=== PATIENT | female | born 1985 | race Caucasian/White ===

== ENCOUNTER 2022-03-16 13:17 | Emergency (ER) | payer BC, SELFPAY ==
[2022-03-16 13:18] VITALS: BP 114/72; PULSE 107; RESP 16; TEMP 37.3; O2SAT 99; BMI 32.1
--- NOTE | 2022-03-16 14:18 | EDS_ITS ---
HPI HPI - GI History of Present Illness Chief Complaint: Abd Pain Informant: patient Abdominal Pain/Flank Pain Onset: Yesterday Context: Sudden Onset Timing: Continuous Quality: Stabbing Location: RLQ and LLQ Worsened by: Movement and - (Ambulation) Relieved by: Remaining Still Nausea/Vomiting/Emesis GI Symptom: Negative for Nausea or Vomiting Diarrhea/Melena/Hematochezia GI Symptom: Negative for Diarrhea, Melena or Hematochezia Associated Symptoms Associated Symptoms: Negative for Dysuria, Frequency or Hematuria LMP: Few weeks ago Narrative Narrative: Patient presents with abdominal pain that began yesterday. Patient states it has been constant since yesterday evening. Patient states it came on rather suddenly. Patient states it is stabbing. Patient states her pain started out as diffuse but is now mainly in the lower abdomen. Patient states it is worse with ambulation. Patient states it is better with rest. Patient denies any nausea or vomiting. Patient denies any diarrhea, melena, or hematochezia. Patient denies any urinary complaints. Patient states her last menstrual period was a few weeks ago. Patient states she went to the urgent care today and had a urinalysis done there which was negative. Patient states that they also did a test which was negative. [facility] Medical History (Updated 03/16/22 @ 19:[address] Néstor Zarate, DO) Asthma Cholecystectomy planned GERD (gastroesophageal reflux disease) Home Medications vits,calcium no.78-iron fumarate-folic acid 29 mg-1 mg tablet (Prenat abs FA) 1 tab PO DAILY 07/24/13 [History Last Taken Unknown] ibuprofen 600 mg tablet 600 mg PO Q6H PRN PRN Pain ##30 07/26/13 [Rx Last Taken Unknown] oxycodone-acetaminophen 5 mg-325 mg tablet 2 tab PO Q4H PRN PRN Moderate-Severe pain ##30 07/26/13 [Rx Last Taken Unknown] ciprofloxacin HCl 500 mg tablet 500 mg PO BID #20 TABLETS 03/16/22 [Rx Last Taken Unknown] metronidazole 500 mg tablet 500 mg PO Q6H #40 tabs 03/16/22 [Rx Last Taken Unknown] Allergy/AdvReac Type Severity Reaction Status Date / Time sulfamethoxazole Allergy Unknown Verified 03/16/22 13:18 [From Bactrim] trimethoprim [From Bactrim] Allergy Unknown Verified 03/16/22 13:18 Surgical History (Updated 03/16/22 @ 14:[address] Néstor Zarate DO) H/O section Hx of cholecystectomy Hx of hysterectomy Hx of tubal ligation Social History Smoking Status: Never smoker ROS ROS ED Constitutional Constitutional ED: Reports fever(s); Denies chills Eyes Eyes: Denies blurry vision or change in vision ENT ENT ED: Denies rhinorrhea or sore throat Cardiovascular Cardiovascular: Denies chest pain or palpitations Respiratory/Chest Respiratory/Chest: Reports dyspnea; Denies cough Gastrointestinal Gastrointestinal: Reports abdominal pain; Denies diarrhea, nausea or vomiting Genitourinary Genitourinary ED: Denies dysuria or hematuria Musculoskeletal Musculoskeletal: Reports back pain; Denies neck pain Integumentary Denies abscess or rash Neurologic Neurologic: Denies headache(s) or weakness Allergic/Immunologic Allergic/Immunologic ED: Denies mouth swelling or urticaria EXAM Physical Exam Const Vital Signs: 03/16/22 13:18 03/16/22 15:22 03/16/22 17:47 Temperature 99.2 F H Temperature Source Temporal Pulse Rate 107 H 71 Respiratory Rate 16 16 18 Blood Pressure 114/72 106/56 L Blood Pressure Mean 86 72 Pulse Ox 99 98 Oxygen Delivery Method Room Air Room Air Positive well nourished and well developed General Appearance ED: well developed HEENT Reports moist mucous membranes Neck supple and no JVD Resp normal respiratory effort and clear to auscultation bilaterally Cardio regular rate, regular rhythm and no murmurs GI normal to inspection, nondistended, normoactive bowel sounds Palpation: soft and tender LLQ and suprapubic; Negative for guarding or rebound tenderness present Extremity normal to inspection General Extremety ED: Negative for edema or tenderness General Extremity: Negative for edema Neuro oriented x3, CN's II-XII intact bilaterally and no sensory deficits noted Sensorium / Orientation: alert Motor Exam: strength 5/5 throughout Psych mental status grossly normal Skin no rashes or lesions noted MDM MDM MDM Narrative Medical decision making narrative: Patient was given IV fluids, morphine, and Zofran. CBC shows a mild leukocytosis of 14.1. Comprehensive metabolic profile was within normal limits. Serum hCG was negative. Urinalysis shows a leukocyte esterases of 25 with 5-[address] scan of the abdomen pelvis was obtained. There is sigmo id diverticulitis. There is no abscess or perforation. This was interpreted by the radiologist and reviewed by myself. Patient was advised of her findings. Patient was given a dose of Cipro and Flagyl here. Patient was given prescriptions for Cipro and Flagyl. Patient was instructed to avoid alcohol. Patient was instructed to follow-up with her primary care physician in 5 to 7 days. Patient understood and was agreeable with the plan. All questions were answered. Lab Data Attestation: I reviewed the patient's lab results. Labs: Laboratory Results - last 24 hr 03/16/22 03/16/22 03/16/22 13:37 13:37 13:37 WBC 14.1 H RBC 4.39 Hgb 14.0 Hct 40.0 MCV 91.1 MCH 31.9 MCHC 35.0 RDW Std Deviation 39.6 RDW Coeff of Anat 11.8 Plt Count 216 MPV 10.6 Immature Gran % (Auto) 0.400 Neut % (Auto) 81.0 H Lymph % (Auto) 12.2 L [place] % (Auto) 6.1 Eos % (Auto) 0.1 Baso % (Auto) 0.2 Absolute Neuts (auto) 11.4 H Absolute Lymphs (auto) 1.73 Nucleated RBC % 0 Sodium 137 Potassium 3.6 Chloride 102 Carbon Dioxide 27.0 Anion Gap 8 BUN 9 Creatinine 0.72 Estim Creat Clear Calc 120.92 Est GFR (MDRD) Af Amer 116 Est GFR (MDRD) Non-Af 96 BUN/Creatinine Ratio 12.4 Glucose 87 Calcium 8.4 L Total Bilirubin 0.80 AST 55 H ALT 42 Alkaline Phosphatase 101 Total Protein 7.2 Albumin 3.7 Globulin 3.5 Albumin/Globulin Ratio 1.1 Serum , Qual NEGATIVE Urine Color Urine Clarity Urine pH Ur Specific Silva Urine Protein Urine Glucose (UA) Urine Ketones Urine Occult Blood Urine Nitrite Urine Bilirubin Urine Urobilinogen Ur Leukocyte Esterase Urine RBC Urine WBC Ur Squamous Epith Cells Urine Bacteria Urine Mucus 03/16/22 15:00 WBC RBC Hgb Hct MCV MCH MCHC RDW Std Deviation RDW Coeff of Anat Plt Count MPV Immature Gran % (Auto) Neut % (Auto) Lymph % (Auto) [place] % (Auto) Eos % (Auto) Baso % (Auto) Absolute Neuts (auto) Absolute Lymphs (auto) Nucleated RBC % Sodium Potassium Chloride Carbon Dioxide Anion Gap BUN Creatinine Estim Creat Clear Calc Est GFR (MDRD) Af Amer Est GFR (MDRD) Non-Af BUN/Creatinine Ratio Glucose Calcium Total Bilirubin AST ALT Alkaline Phosphatase Total Protein Albumin Globulin Albumin/Globulin Ratio Serum , Qual Urine Color Yellow Urine Clarity Clear Urine pH 7.0 Ur Specific Silva 1.005 Urine Protein Negative Urine Glucose (UA) Normal Urine Ketones Negative Urine Occult Blood Negative Urine Nitrite Negative Urine Bilirubin Negative Urine Urobilinogen Normal Ur Leukocyte Esterase 25 H Urine RBC 0 SEEN Urine WBC 5-10 SEEN Ur Squamous Epith Cells 0-5 SEEN Urine Bacteria 0 SEEN Urine Mucus 0 SEEN Radiography Diagnostic Testing: Clinical Impression(s) from Imaging Studies Abdomen/Pelvis CT 03/16/22 14:23 IMPRESSION: 1. Acute uncomplicated sigmoid diverticulitis. 2. Cholelithiasis. 3. Dilated common duct. No opaque stone is visualized. 4. Involuting right ovarian cyst. 5. Right renal cyst. Follow-up is not indicated per ACR guidelines. Electronically Signed: Kathy Bocanegra MD at 16:57 EDT Reading Location ID and State: [id number] / Tel , Service support , Discharge Plan Triage Chief Complaint: Abd Pain ED Provider: Néstor Zarate Dx/Rx/DC Orders Clinical Impression: Diverticulitis of sigmoid colon, Abdominal pain Instructions: ED Diverticulitis Prescriptions: New metronidazole [metronidazole] 500 mg tablet 500 mg PO Q6H Qty: 40 0RF ciprofloxacin HCl [ciprofloxacin HCl] 500 mg tablet 500 mg PO BID Qty: 20 0RF No Action vit,[id number] [Prenatabs FA] 1 TABLET tablet 1 tab PO DAILY oxycodone-acetaminophen 1 TABLET tablet 2 tab PO Q4H PRN PRN (Reason: Moderate-Severe pain) Qty: 30 0RF ibuprofen 600 MG tablet 600 mg PO Q6H PRN PRN (Reason: Pain) Qty: 30 0RF Stand Alone Forms: ED Work / School Excuse Primary Care Provider: Leisa Chavez Referrals: Ksenia Huang MD [Non-Staff] - 5-7 Days Disposition Disposition: Home, Self Care
--- NOTE | 2022-03-16 14:23 | CT_ITS ---
EXAM: CT ABDOMEN AND PELVIS WITH INTRAVENOUS CONTRAST CLINICAL INDICATION: Abdominal pain -- IV PO Contrast TECHNIQUE: Helically acquired images were obtained of the abdomen and pelvis with intravenous contrast. This CT exam was performed using one or more of the following dose reduction techniques: automated exposure control, adjustment of the mA and/or kV according to patient size, and/or use of iterative reconstruction technique. This report was created using [employer] report generation technology. CONTRAST: Oral and amp; IV Gastrografin and amp; 100mL [id number] COMPARISON: None. FINDINGS: LOWER THORAX: Unremarkable. Lung bases are clear. No cardiomegaly. No significant pericardial effusion. ABDOMEN: LIVER: 1.3 cm lateral segment hepatic cyst. The liver is otherwise unremarkable. GALLBLADDER AND BILE DUCTS: Stone in a contracted gallbladder. Mildly dilated common duct measuring 8 mm. No opaque stone is demonstrated. No gallbladder distention or wall edema. PANCREAS: Unremarkable. No focal cystic or solid mass. SPLEEN: Unremarkable. Normal size without focal cystic or solid mass. ADRENALS: Unremarkable. No nodules. KIDNEYS AND URETERS: 1.8 cm right renal cyst. The kidneys are otherwise unremarkable. No stones or hydronephrosis. Normal renal size and position. STOMACH AND BOWEL: Thick-walled sigmoid colon with moderate pericolonic stranding consistent with acute diverticulitis. No stomach or bowel distention. PELVIS: APPENDIX: No evidence of acute appendicitis. BLADDER: Unremarkable. REPRODUCTIVE: Involuting right ovarian cyst. ABDOMEN and PELVIS: INTRAPERITONEAL SPACE: Unremarkable. No ascites or other fluid collection. No free air. BONES/JOINTS: Unremarkable. No suspicious lytic or blastic abnormality. SOFT TISSUES: Unremarkable. No discrete abdominal or pelvic wall hernia. VASCULATURE: Unremarkable. Abdominal aorta is normal in caliber. LYMPH NODES: Unremarkable. No enlarged lymph nodes. CT/Abdomen/Pelvis WITH Contrast IMPRESSION: 1. Acute uncomplicated sigmoid diverticulitis. 2. Cholelithiasis. 3. Dilated common duct. No opaque stone is visualized. 4. Involuting right ovarian cyst. 5. Right renal cyst. Follow-up is not indicated per ACR guidelines. Electronically Signed: Kathy Bocanegra MD at 16:57 EDT Reading Location ID and State: [id number] / Tel , Service support ,
[2022-03-16] MEDS: Ondansetron 4 MG/2 ML Vial IV (14:31)
[2022-03-16] MEDS: Morphine 4 MG/ML Syringe IV (14:31)
[2022-03-16] MEDS: 0.9% Normal Saline 1,000 ML 1000 ML IV (14:32)
[2022-03-16 14:39] LABS: Absolute Lymphocyte Count 1.73 X10^3/uL (0.83-4.51); Absolute Neutrophil Count 11.4 X10^3/uL (2.0-7.7); Basophil# 0.03 X10^3/uL; Basophil% 0.2 % (0-1); Eosinophil# 0.02 X10^3/uL; Eosinophils% 0.1 % (0-5); Lymphocyte # 1.73 X10^3/ul (0.83-4.51); Lymphocyte % 12.2 % (19-41); Mean Corpuscular Hgb 31.9 pg (27.0-32.0); Mean Corpuscular Volume 91.1 fL (81-99); Mean Platelet Vol. 10.6 fl (6.2-12.0); Monocyte# 0.86 X10^3/uL; Monocyte% 6.1 % (0-10); NRBC Flagged by Analyzer 0 % (0-5); Neutrophil # 11.44 X10^3/uL (2.7-7.7); Platelet Count 216 K/mm3 (150-450); RBC Distribution Width CV 11.8 % (11.6-14.6); RBC Distribution Width SD 39.6 fl (35.1-43.9); Red Blood Count 4.39 M/mm3 (4.2-5.4); White Blood Count 14.1 K/mm3 (4.4-11.0)
[2022-03-16 14:55] LABS: ALB/GLOB Ratio 1.1 RATIO (0.9-2.4); AST(SGOT) 55 U/L (15-37); Alanine Aminotransfer ALT/SGPT 42 U/L (13-56); Albumin, Serum 3.7 g/dL (3.2-5.0); Alkaline Phosphatase 101 U/L (45-117); Anion Gap 8 (5-15); BUN 9 mg/dL (7-18); BUN/Creat Ratio 12.4 RATIO (10-20); Calcium,Total 8.4 mg/dL (8.5-10.1); Chloride 102 mmol/L (98-107); Creatinine, Serum 0.72 mg/dL (0.55-1.02); EST Glomerular Filtration Rate 96 mL/min (>60); Est Glom Filt Rate - Afr Amer 116 mL/min (>60); Estimated Creatinine Clearance 120.92 ml/min; Globulin 3.5 g/dL (2.2-4.2); Glucose 87 mg/dL (74-106); Potassium 3.6 mmol/L (3.5-5.1); Protein, Total 7.2 g/dL (6.4-8.2); Sodium Level 137 mmol/L (136-145)
[2022-03-16 15:17] LABS: Bacteria 0 SEEN /hpf (None Seen); Mucous, Urine 0 SEEN /hpf (<or=2+); Red Blood Cells-Urine 0 SEEN /hpf (0-5)
[2022-03-16 15:18] LABS: Color, Urine Yellow (Yellow); Glucose, Dipstick Normal (Normal); Ketone-Dipstick Negative (Negative); Leukocyte Esterase-Dipstick 25 /ul (Negative); Nitrite-Dipstick Negative (Negative); Occult Blood-Urine Negative /ul (Negative); Protein-Dipstick Negative (Negative); Specific Gravity, Urine 1.005 (1.002-1.030); Urine Bilirubin Dipstick Negative (Negative); Urine Clarity Clear (Clear); Urine Urobilinogen Normal (Normal)
[2022-03-16 15:22] VITALS: RESP 16
[2022-03-16 15:25] LABS: Squamous Epithelial Cells - UA 0-5 SEEN /hpf (5-10); White Blood Cells 5-10 SEEN /hpf (0-5)
[2022-03-16 15:33] LABS: Internal QC Validated? YES +Cl - CLEAR BKGD; Pregnancy, Serum, hCG Quali. NEGATIVE Negative
[2022-03-16 17:47] VITALS: BP 106/56; PULSE 71; RESP 18; O2SAT 98
[2022-03-16] MEDS: metroNIDAZOLE 500 MG Tablet PO (19:27)
[2022-03-16] MEDS: Ciprofloxacin 500 MG Tablet PO (19:27)
== END 2022-03-16 19:37 | disposition home or self-care (01) ==
PROVIDERS: Emergency Provider Emergency Medicine; PCP Internal Medicine; Visit Provider Emergency Medicine
DX: K57.32 Diverticulitis of large intestine without perforation or abscess without bleeding (principal); J45.909 Unspecified asthma, uncomplicated; K21.9 Gastro-esophageal reflux disease without esophagitis; R06.00 Dyspnea, unspecified; Z79.899 Other long term (current) drug therapy
CPT/HCPCS: 74177; 80053; 81001; 84703; 85025; 96361; 96374; 96375; 99284; J7030; Q9967; A4216; J2405